=== PATIENT | female | born 1970 | race Caucasian/White ===

== ENCOUNTER 2018-03-21 06:35 | Day surgery (SDC) | payer OTHER ==
[~2018-03-21] VITALS: Ht 160 cm; Wt 47.2 kg
[~2018-03-21 06:35] MED LIST: AMITRIPTYLINE H25 MG PO; CELEXA20 MG PO; WELLBUTRIN XL150 MG PO
--- NOTE | 2018-03-21 06:58 | NUR ---
C/O HIP AND BACK PAIN.
--- NOTE | 2018-03-21 08:04 | NUR ---
03/21/18 0804 Elinor Guadarrama 0800 PATIENT ARRIVES TO PACU SLEEPING. AWAKENS WITH VERBAL STIMULI, SLOW TO ANSWER QUESTIONS THEN BACK TO SLEEP. RESP EVEN AND UNLABORED. NC AT 3 LITERS. DENIES PAIN OR NAUSEA, THEN BACK TO SLEEP. 0803 OXYGEN OFF.
--- NOTE | 2018-03-22 12:42 | OR ---
[facility] [address], [place] [address] Signed DATE OF OPERATION: 03/21/2018 SURGEON: Keysha Cohen MD PREOPERATIVE DIAGNOSES: 1. Known history familial polyposis, status post total proctocolectomy with ileoanal pull-through. 2. Screening for duodenal polyps. POSTOPERATIVE DIAGNOSES: 1. Gastric polyps (benign fundic gland polyps). 2. Possibly two small duodenal polyps (excised). PROCEDURES: Esophagogastroduodenoscopy with excision of administrative representative gastric polyp and two duodenal polyps. ANESTHESIA: Intravenous sedation, fentanyl 100 mcg, Versed 3 mg. 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 She has never had upper endoscopy she says. She is at risk of duodenal polyp formation which can result in malignant transformation and on that basis upper endoscopy has been recommended. Her primary physician is Dr. Murray. She was admitted to undergo upper endoscopy at this time. She understands the risks of bleeding, infection, and perforation. FINDINGS: She had multiple gastric polyps, which would not be considered precancerous, a administrative representative polyp or two were excised to prove that they were fundic gland polyps. As regard to the duodenum, there was no obvious polyposis there, though there were 2 areas which were suggestive of polyps and both were excised completely. The esophagus appeared normal as did the vocal cords. There were no other findings of concern. DESCRIPTION OF PROCEDURE: The patient was brought to the endoscopy suite and placed in lateral decubitus position, given intravenous sedation to the point of slurred speech and nystagmus. Preoperative hypopharyngeal Hurricaine spray was administered. A bite block was placed. After Electronically Signed By: KEYSHA COHEN MD 03/22/18 1242 PATIENT NAME: BEKAH GARCIA OPERATIVE REPORT DATE OF : 74 REPORT #: [id number] PHYSICIAN: KEYSHA COHEN MD PCP: PETE MURRAY MD REPORT IS CONFIDENTIAL AND NOT TO BE RELEASED WITHOUT AUTHORIZATION [facility] [address], [place] [address] Signed satisfactory sedation, an Olympus video upper endoscope was passed in the hypopharynx. The vocal cords visualized and found to be normal. Scope was advanced to the esophagus throughout its length, it was normal. The scope was passed into the stomach, which was insufflated with air. Excess gastric juices were suctioned free. Rugal folds appeared normal, though there were multiple small gastric polyps throughout the stomach; the antrum had fewer. The pylorus was normal. Scope was passed through into the duodenum. The bulbar portion was entirely normal. The 2nd and 3rd portion showed two areas, one which showed a possible small adenomatous polyp. This was excised as well as the other such finding. The ampulla was not visibly abnormal. The scope was withdrawn to the stomach and retroflexed view undertaken. One of the administrative representative polyps was excised, most likely representing benign fundic gland polyp. The scope was further withdrawn. Close inspection of the esophagus showed it to be normal. Scope was removed and the patient was taken to the recovery room in good condition. CONCLUDING DIAGNOSES: 1. Oviedo syndrome (familial polyposis). 2. Possible duodenal polyps x2 (excised). PLAN: We will evaluate the pathology report, findings, and a plan for repeat upper endoscopy. Likely this would be about 3 years. MD USHA Whitaker/MODL /[id number] cc: Trevor Copies: ~ Electronically Signed By: KEYSHA COHEN MD 03/22/18 1242 PATIENT NAME: BEKAH GARCIA OPERATIVE REPORT DATE OF : 74 REPORT #: [id number] PHYSICIAN: KEYSHA COHEN MD PCP: PETE MURRAY MD REPORT IS CONFIDENTIAL AND NOT TO BE RELEASED WITHOUT AUTHORIZATION
== END 2018-03-21 08:35 | disposition home or self-care (01) ==
LOC: DS 06:35 → OPS 06:35 → DS 06:45 → OPS 06:45
PROVIDERS: Surgery
PROC: 0D568ZZ Destruction of Stomach, Via Natural or Artificial Opening Endoscopic (ICD-10-PCS; 2018-03-21)
PROC: 0D598ZZ Destruction of Duodenum, Via Natural or Artificial Opening Endoscopic (ICD-10-PCS; principal; 2018-03-21 06:45)
DX: Z13.810 Encounter for screening for upper gastrointestinal disorder (principal); D13.2 Benign neoplasm of duodenum; F32.9 Major depressive disorder, single episode, unspecified; K31.7 Polyp of stomach and duodenum; F41.9 Anxiety disorder, unspecified; D12.6 Benign neoplasm of colon, unspecified; F41.8 Other specified anxiety disorders
CPT/HCPCS: 99153; G0500; J2250; J3010; J7120

== ENCOUNTER 2025-02-13 12:32 | Emergency (ER) | payer OTHER ==
[~2025-02-13] VITALS: Ht 160 cm; Wt 56.7 kg
[2025-02-13] MEDS ORDERED: CYCLOBENZAPRINE5 MG PO (12:51)
[2025-02-13] MEDS ORDERED: KETOROLAC TROMETHAMINE 15 MG/ML VIAL IV ONE (13:45)
[2025-02-13] MEDS ORDERED: diphenhydrAMINE HCL 50 MG/ML VIAL IV ONE (13:45)
[2025-02-13] MEDS ORDERED: METOCLOPRAMIDE HCL 10 MG/2 ML SDV IV ONE (13:45)
[2025-02-13 13:50] LABS: BASOPHILS 0.5 % (0-2); HEMATOCRIT 37.2 % (35.0-50.0); HEMOGLOBIN 12.6 g/dL (12.0-18.0); LYMPHOCYTES 25.7 % (24-44); MCH 27.4 (27-36); MCHC 33.9 g/dl (30-36); NEUTROPHILS 63.8 % (39-80); PLATELET COUNT 332 K/uL (140-440); RDW 13.9 (10.5-15.0)
[2025-02-13 14:00] LABS: ALBUMIN 3.2 g/dL (3.4-5.0); ANION GAP 9.6 (7-21); BILIRUBIN, TOTAL 0.3 mg/dL (0.2-1.0); BUN/CREATININE RATIO 12.64 (6.0-28.6); CALCIUM 8.4 mg/dL (8.5-10.1); CREATININE, SERUM 0.87 mg/dL (0.55-1.02); POTASSIUM 3.6 mmol/L (3.5-5.1); PROTEIN, TOTAL 6.4 g/dL (6.4-8.2)
[2025-02-13] MEDS ORDERED: SODIUM CHLORIDE 0.9% 500 ML IV PRN (14:15)
[2025-02-13] MEDS ORDERED: ONDANSETRON ODT8 MG PO (15:30)
[2025-02-13 15:37] LABS: ERYTHROCYTE SEDIMENTATION RATE 15
[2025-02-13 15:47] VITALS: BP 94/61
== END 2025-02-13 15:47 | disposition home or self-care (01) ==
LOC: ED 12:32
PROVIDERS: Emergency Medicine
DX: R51.9 Headache, unspecified (principal); Z88.5 Allergy status to narcotic agent; Z79.899 Other long term (current) drug therapy
CPT/HCPCS: 36415; 70450; 80053; 85025; 85651; 96374; 96375; 99284-25; J1200; J1885; J2765; J7040